=== PATIENT | female | born 1970 | race African-American/Black ===

== ENCOUNTER 2017-04-17 11:28 | Emergency (ER) | payer OTHER ==
[~2017-04-17] VITALS: Ht 165.1 cm; Wt 86.2 kg
--- NOTE | ~2017-04-17 | CT71 ---
[facility] A Service of [facility] RADIOLOGY TEXT RESULTS PATIENT: BOONE WILBURN LOCATION: [facility] : 72 UNIT #: [id number] AGE: [address]: Annalee Toth MD SEX: F ORDER DR: [id number] [facility] [address] [place], [place] [address] [id number] MR#: [id number] #: [id number] NAME: BOONE WILBURN : 1970 SEX: F STUDY DATE/TIME: 04/17/2017 14:00 UNIT: [facility] ROOM: STUDY DESCRIPTION: CT Head Wo Contrast Attending Physician: Annalee Toth M.D. Ordering Physician: Carlos Jeter M.D. Primary Care Physician: Mary Gonzales M.D. MEDICAL IMAGING REPORT This report is preliminary unless electronic signature is present EXAM CT head without contrast, 04/17/2017 COMPARISON None. HISTORY Headache since fall on Sunday. The patient fell and hit right side of the head with loss of consciousness. Nausea and vomiting are worse today. This CT exam was performed with one or more of the following radiation dose reduction techniques: automatic exposure control, adjustment of mA and/or kV according to patient size, and iterative reconstruction. FINDINGS CT of the head was obtained without contrast in the axial plane as per the protocol. No acute intracranial hemorrhage, space-occupying mass, mass effect, midline shift or hydrocephalus. Bones, mastoid air cells, paranasal sinuses demonstrate mild inferior right mastoid mucosal thickening. The nasal septum is slightly deviated to the right. Imaged orbits with the ocular structures do not demonstrate any significant abnormality. IMPRESSION 1. No demonstrable intracranial abnormality. 2. Mild right mastoid mucosal thickening. Dictated by... Jose Johnson M.D. THIS IS AN ELECTRONICALLY VERIFIED REPORT [facility] A Service of [facility] RADIOLOGY TEXT RESULTS PATIENT: BOONE WILBURN LOCATION: [facility] : 72 UNIT #: [id number] AGE: [address]: Annalee Toth MD SEX: F ORDER DR: Jose Johnson M.D. at 04/18/2017 7:04 PM CPR/ljd TD: 04/17/2017 21:36 JOB #: [id number] MEDICAL IMAGING REPORT Page 1 of 1 COPY
[~2017-04-17 11:28] MED LIST: ASPIRIN81 M2 PO; COREG3.125 MG PO; FLEXERIL PO; LISINOPRIL20 MG PO
[2017-04-17 15:26] LABS: BASOPHIL% 0.6 % (0-2.5); EOSINOPHIL# 0.1 X10e3 (0-0.7); EOSINOPHIL% 1.3 % (0.0-7.0); HEMATOCRIT 40.8 % (35.0-45.0); MEAN CELL VOLUME 88.3 FL (83-96); MEAN CORPUSCULAR HEMOGLOBIN 30.4 PG (28-34); MEAN CORPUSCULAR HGB CONC 34.4 g/dL (30-36); MONOCYTE# 0.5 X10e3 (0-1.0); MONOCYTE% 8.1 % (3.0-12.0); NEUTROPHIL# 2.4 X10e3 (1.5-7.1); PLATELET COUNT 217 X10e3 (140-420); RED BLOOD COUNT 4.62 X10e (3.90-5.30); RED CELL DISTRIBUTION WIDTH 15.2 % (11.0-15.5); WHITE BLOOD COUNT 6.1 X10e3 (4.0-10.5)
[2017-04-17 15:39] LABS: DIFF IND YES
[2017-04-17 15:46] LABS: PLATELET ESTIMATE NORMAL (NORMAL)
[2017-04-17 16:30] LABS: URINE SOURCE CLEAN CATCH
[2017-04-17 16:37] LABS: URINE APPEARANCE CLEAR; URINE BILIRUBIN NEG (NEG); URINE BLOOD NEG (NEG); URINE COLOR YELLOW; URINE GLUCOSE NEG (NEG); URINE KETONE TRACE (NEG); URINE LEUKOCYTE ESTERASE NEG (NEG); URINE NITRATE NEG (NEG); URINE PROTEIN NEG (NEG); URINE SPECIFIC GRAVITY 1.027 (1.003-1.035)
[2017-04-17 16:43] LABS: CULTURE INDICATED? NO
[2017-04-17 17:08] LABS: ALBUMIN SERUM 4.4 g/dL (3.5-5.0); ALKALINE PHOSPHATASE 59 U/L (32-92); ALT (SGPT) 14 U/L (10-40); AMYLASE 25 U/L (0-46); AST (SGOT) 16 U/L (10-42); BILIRUBIN,TOTAL 0.1 mg/dL (0.2-2.0); BLOOD UREA NITROGEN 14 mg/dL (9-23); CALCIUM SERUM 9.1 mg/dL (8.4-10.2); CARBON DIOXIDE 29 mmol/L (22-31); CHLORIDE 100 mmol/L (100-111); CREATININE SERUM 0.8 mg/dL (0.6-1.4); GLOM FILT RATE Estimated 102.6 mL/min (>60); GLUCOSE FASTING 98 mg/dL (70-110); LIPASE 22 U/L (22-51); POTASSIUM 3.4 mmol/L (3.5-5.1); PROTEIN TOTAL SERUM 7.7 g/dL (6.0-8.3); SODIUM 138 mmol/L (135-145)
[2017-04-17 17:09] LABS: BILIRUBIN, DIRECT <0.1 mg/dL (0.0-0.2)
== END 2017-04-17 18:52 | disposition home or self-care (01) ==
LOC: CED 11:28
PROVIDERS: Emergency Medicine
DX: R11.2 Nausea with vomiting, unspecified (principal); R51 Headache; R19.7 Diarrhea, unspecified; I10 Essential (primary) hypertension
CPT/HCPCS: 36415; 70450; 80048; 80076; 81003; 82150; 83690; 85025; 96361; 96374; 99284; J2405